=== PATIENT | male | born 1945 | race African-American/Black ===

== ENCOUNTER 2021-02-27 13:28 | Inpatient (IN) ==
[2021-02-27] MEDS ORDERED: PANTOPRAZOLE 40 MG VIAL IV STA (14:54)
[2021-02-27 15:26] LABS: INR 1.3
[2021-02-27 15:38] LABS: Albumin 3.8 G/DL (3.4-5.0); Bilirubin,Total 0.8 MG/DL (0.2-1.0); Calcium 8.7 MG/DL (8.5-10.1); Osmolality,Calculated 285.1 MOS/KG (273-304); Potassium 3.8 MMOL/L (3.5-5.1); Total Protein 7.5 G/DL (6.4-8.2)
[2021-02-27 15:40] LABS: Basophils # 0.1 10*3/uL (0.0-0.2); Basophils % 0.6 % (0.0-0.8); Eosinophils # 0.4 10*3/uL (0.0-0.87); Eosinophils % 5.1 % (0.00-10.9); Hematocrit 25.8 VOL% (42.0-52.0); Immature Granulocytes % 0.3 %; Immature Granulocytes Absolute 0.02 #; Lymphocytes # 2.2 10*3/uL (1.4-4.0); Lymphocytes % 28.5 % (21.2-54.2); Mean Corpuscular HGB Conc 27.1 GM/DL (32-36); Mean Corpuscular Volume 67.2 FL (87-102); Mean Platelet Volume 11.2 FL (9.6-12.0); Monocytes % 12.6 % (1.7-12.7); Neutrophils % 52.9 % (38.7-73.9); Platelet Count 266 T/CUMM (130-400); Red Blood Count 3.84 MC/CUMM (3.8-5.5); Red Cell Distribution Width 17.2 % (9.3-17.3); White Blood Count 7.9 T/CUMM (4-12)
[2021-02-27] MEDS ORDERED: SODIUM CHLORIDE 0.9% 1,000 ML IV PRN ×2 (16:03→16:27)
[2021-02-27] MEDS ORDERED: ONDANSETRON 4 MG/2 ML VIAL IV PRN (16:23)
[2021-02-27] MEDS ORDERED: ACETAMINOPHEN 325 MG TABLET PO PRN (16:23)
[2021-02-27] MEDS ORDERED: GLUCAGON 1 MG VIAL IM PRN (16:23)
[2021-02-27] MEDS ORDERED: DEXTROSE 50% 25 GM/50 ML VIAL IV PRN ×2 (16:23→17:12)
[2021-02-27] MEDS: INSULIN REGULAR 100 UNIT/ML SUBCUT SCH (22:08)
[2021-02-27] MEDS: PANTOPRAZOLE 40 MG VIAL IV SCH (22:08)
[2021-02-27 23:05] LABS: Hematocrit 24.9 VOL% (42.0-52.0); Hemoglobin 7.1 GM/DL (14.0-18.0)
[2021-02-28 06:07] LABS: Hematocrit 28.8 VOL% (42.0-52.0); Hemoglobin 8.5 GM/DL (14.0-18.0)
[2021-02-28 06:48] LABS: % Iron Saturation 2.9 % (18-50); Ferritin 4.6 ng/ml (26-388)
[2021-02-28 06:52] LABS: Folate > 24.00 NG/ML (5.38-24.0); Vitamin B12 890 PG/ML (211-911)
[2021-02-28 07:06] LABS: Basophils # 0.1 10*3/uL (0.0-0.2); Basophils % 0.9 % (0.0-0.8); Eosinophils # 0.4 10*3/uL (0.0-0.87); Eosinophils % 6.2 % (0.00-10.9); Hematocrit 29.8 VOL% (42.0-52.0); Hemoglobin 8.5 GM/DL (14.0-18.0); Immature Granulocytes % 0.3 %; Immature Granulocytes Absolute 0.02 #; Lymphocytes # 2.2 10*3/uL (1.4-4.0); Lymphocytes % 31.9 % (21.2-54.2); Mean Corpuscular HGB Conc 28.5 GM/DL (32-36); Mean Corpuscular Volume 70.3 FL (87-102); Monocytes % 11.8 % (1.7-12.7); Neutrophils % 48.9 % (38.7-73.9); Platelet Count 240 T/CUMM (130-400); Red Blood Count 4.24 MC/CUMM (3.8-5.5); Red Cell Distribution Width 20.4 % (9.3-17.3); White Blood Count 6.8 T/CUMM (4-12)
[2021-02-28 07:13] LABS: Acanthocytes Few; Hypochromasia 2+; Microcytosis 1+
[2021-02-28 07:14] LABS: Ovalocytes Slight; Platelet Estimate Normal; Poikilocytosis 1+; Target Cells Slight
[2021-02-28 07:26] LABS: Albumin 3.5 G/DL (3.4-5.0); Calcium 9.1 MG/DL (8.5-10.1); Osmolality,Calculated 286.8 MOS/KG (273-304); Potassium 3.4 MMOL/L (3.5-5.1)
[2021-02-28] MEDS ORDERED: ALBUTEROL 2.5 MG/3 ML NEB RESP TX PRN (07:58)
[2021-02-28] MEDS ORDERED: POTASSIUM CHLORIDE RIDER 10 MEQ in PREMIX 1 EACH IV PRN (07:58)
[2021-02-28] MEDS: INSULIN REGULAR 100 UNIT/ML SUBCUT SCH ×4 (08:08→21:41)
[2021-02-28 08:10] LABS: Hemoglobin A1 (Alkaline) 97.9 % (96.5-98.5); Hemoglobin A2 (Alkaline) 2.1 % (1.5-3.5)
[2021-02-28 08:24] LABS: Sedimentation Rate-Westergren 5 MM/HR (0-20)
[2021-02-28] MEDS ORDERED: IRON SUCROSE 300 MG in SODIUM CHLORIDE 0.9% 100 ML IV ONE (10:30)
[2021-02-28 10:55] LABS: Hematocrit 29.5 VOL% (42.0-52.0); Hemoglobin 8.6 GM/DL (14.0-18.0)
[2021-02-28] MEDS: ROSUVASTATIN 20 MG TABLET PO SCH (13:05)
[2021-02-28] MEDS: PANTOPRAZOLE 40 MG VIAL IV SCH ×2 (13:06→21:41)
[2021-02-28] MEDS: amLODIPine 5 MG TABLET PO SCH (16:54)
[2021-02-28 18:22] LABS: Hemoglobin 8.5 GM/DL (14.0-18.0)
[2021-03-01 08:07] VITALS: BP 136/65
[2021-03-01] MEDS: INSULIN REGULAR 100 UNIT/ML SUBCUT SCH (08:13)
[2021-03-01] MEDS ORDERED: IRON SUCROSE 100 MG/5 ML VIAL IV SCH (09:00)
[2021-03-01] MEDS: ROSUVASTATIN 20 MG TABLET PO SCH (09:21)
[2021-03-01] MEDS: amLODIPine 5 MG TABLET PO SCH (09:21)
[2021-03-01] MEDS: PANTOPRAZOLE 40 MG VIAL IV SCH (09:24)
[2021-03-01] MEDS ORDERED: carvediloL 12.5 MG TABLET PO SCH (21:00)
== END 2021-03-01 10:28 | disposition home or self-care (01) | DRG 812 ==
LOC: N.ED 13:28 → SUATTDRO 16:23 → N.EDINP 16:23 → N.4E 18:59
PROVIDERS: ADMIT Internal Medicine; ATTEND Phlebology